=== PATIENT | male | born 1970 | race Caucasian/White ===

== ENCOUNTER 2024-06-19 08:21 | Emergency (ER) | payer OTHER, SELFPAY ==
[2024-06-19 08:23] VITALS: BP 136/86; PULSE 84; RESP 20; TEMP 37; O2SAT 96
[2024-06-19] MEDS: FLUORESCEIN SOD 1 MG/STRIP EACH EYE (08:29)
[2024-06-19] MEDS: DACRIOSE EYE IRRIGATION 118 ML BOTTLE 10 ML LEFT EYE (08:29)
[2024-06-19] MEDS: TETRACAINE HCL 0.5% OPHTH SOLN 4 ML BTL 1 DROP EACH EYE (08:29)
--- NOTE | 2024-06-19 08:38 | ED.EYEPROB ---
HPI - Eye Problem General Chief complaint: Eye Problems Stated complaint: foreign object in left eye Source: patient Mode of arrival: ambulatory Limitations: no limitations History of Present Illness HPI Narrative: this is a 54-year-old male presents with no significant past medical history while he was driving this morning felt like a piece of [place] into his left eye causing irritation and swelling and foreign body sensation. chief complaint: eye pain and eye redness Onset (ago): hour(s) Onset description: sudden Duration: constant Location: left eye Eye Symptoms: burning, redness and foreign body sensation Related Data Allergies Allergy/AdvReac Type Severity Reaction Status Date / Time No Known Allergies Allergy Verified 06/19/24 08:26 Review of Systems Review of Systems: All systems reviewed & are unremarkable except as noted in HPI and below PMFSH Past Medical History Medical History Patient denies medical problems Exam Const: General: healthy appearing Nutritional Appearance: well nourished Orientation/consciousness: patient oriented x3 Limitations: no limitations HENMT: Head: normal to inspection Face and sinus: normal facial exam Eyes: Conjunctivae: conjunctival abnormality ( conjunctiva injected an irritated) Pupils: Equal, round and reactive pupils present EOM: EOMs intact bilaterally Direct Ophthalmoscopy: photophobia Neck: Neck: normal visual inspection Resp: Effort & Inspection: normal respiratory effort Auscultation: clear to auscultation bilaterally Cardio: Rate: regular rate Rhythm: regular rhythm Course Course Emergency Course: tetracaine used to numb the left eye and advisors I have magnifying goggles were used to visualize the eye and did not see any foreign body was irrigated and fluorescein stain use which showed no corneal abrasion. Antibiotic eye drop was instilled into the left eye. Vital Signs Vital signs: Vital Signs Temperature 37.0 C 06/19/24 08:23 Pulse Rate 84 06/19/24 08:23 Respiratory Rate 20 06/19/24 08:23 Blood Pressure 136/86 06/19/24 08:23 Pulse Oximetry 96 06/19/24 08:23 Oxygen Delivery Room Air 06/19/24 08:23 Temperature 37.0 C 06/19/24 08:23 Pulse Rate 84 06/19/24 08:23 Respiratory Rate 20 06/19/24 08:23 Blood Pressure 136/86 06/19/24 08:23 Pulse Oximetry 96 06/19/24 08:23 Oxygen Delivery Room Air 06/19/24 08:23 Procedures FB Removal Eye Foreign Body #1: Foreign Body Removal Date: 06/19/24 Foreign Body Removal Time: 08:41 Time Out performed: Yes Location: eye (L) Topical anesthetic used: tetracaine Foreign body: other ( No foreign object visualized) Evidence of corneal penetration: No Technique: irrigation Procedure performed under: direct visualization with magnification Post-procedure medication: ophthalmic antibiotic Patient tolerated procedure: well Critical Care Time Critical Care Time Critical Care Time: No Discharge Plan Discharge Clinical Impression: Bacterial conjunctivitis Patient Disposition: Home, Self-Care Condition: Stable Instructions: Antibiotic Form, Conjunctivitis (ED) Additional Instructions: advised to take medication as prescribed, can use Tylenol or Motrin as needed and follow with primary within 1 week further evaluation and treatment. Prescriptions: New neomycin-polymyxin B-dexameth [Maxitrol] 3.5mg/mL-10,000 unit/mL-0.1 % drops,suspension 1 drp LEFT EYE Q6H 7 Days Qty: 5 0RF Follow-up/Referrals: UNKNOWN,DOCTOR [Primary Care Provider] - Time of Disposition: 08:44
--- NOTE | 2024-06-19 08:39 | PC.NURSE ---
Assisted Dr. Pena as he completed his eye exam. Turned lights on and off and fetched supplies.
[2024-06-19] MEDS: NEOMYCIN/POLYMYXIN/HYDROCORT 7.5 ML EYE DROPS (*BKC) 2 DROP LEFT EYE (08:52)
== END 2024-06-19 08:55 | disposition home or self-care (01) ==
PROVIDERS: Emergency Provider Emergency Medicine
DX: H10.89 Other conjunctivitis (principal)
CPT/HCPCS: 99283; A9270